=== PATIENT | male | born 1980 | race Caucasian/White ===

== ENCOUNTER 2016-05-12 11:52 | Emergency (ER) | payer SELFPAY ==
[~2016-05-12] VITALS: Ht 180.3 cm; Wt 110.8 kg
[~2016-05-12 11:52] MED LIST: CLON.5 PO; DEPA250T PO; METH750T2 PO; NAPR40TA PO; PHEN60TA PO
[2016-05-12 12:00] VITALS: BP 136/92; PULSE 112; RESP 18; TEMP 102; O2SAT 95
[2016-05-12 12:31] VITALS: BP 145/82; PULSE 108; RESP 20; TEMP 99.9; O2SAT 96
[2016-05-12] MEDS ORDERED: PHEN-522 PO (12:31)
[2016-05-12] MEDS ORDERED: CLON.5 PO (12:31)
[2016-05-12] MEDS ORDERED: VALP250 PO (12:31)
[2016-05-12] MEDS ORDERED: NAPR500T PO (13:21)
[2016-05-12] MEDS ORDERED: AZIT250T3 PO (13:21)
--- NOTE | 2016-05-12 13:22 | PD ---
HPI Chief Complaint: Cold / Flu Symptoms Time Seen by Provider: 13:12 Travel History International Travel<30 days: No Contact w/Intl Traveler<30days: No Traveled to known affect area: No History of Present Illness HPI This is a 35-year-old male who presents to the emergency department with cough and nasal congestion for 1 week, constant, moderate severity associated with yellow sputum production and fevers and chills. He just started a new job. The patient denies any history of smoking. PFSH Past Medical History Autoimmune Disease: No Anxiety: No Depression: Yes Cancer: No Cardiovascular Problems: No Diabetes: No Diminished Hearing: No Endocrine: No Gastrointestinal Disorders: No Genitourinary: No Immune Disorder: No Implanted Vascular Access Dvce: No Musculoskeletal: No Neurologic: Yes Psychiatric: Yes Reproductive: No Respiratory: No Immunizations Current: Yes Seizures: Yes Thyroid Disease: No Tetanus Vaccination: < 5 Years Influenza Vaccination: No ?: Not Past Surgical History Surgical History: No Previous Surgery Endocrine Surgery: Yes (T& A) Tonsillectomy: Yes Other Surgery: Yes Social History Alcohol Use: No Tobacco Use: No (quit 4 years ago) Substance Use: No Allergies-Medications (Allergen,Severity, Reaction): Coded Allergies: No Known Allergies (Verified , 05/12/16) Reported Meds & Prescriptions Reported Meds & Active Scripts Active Reported Klonopin (Clonazepam) 0.5 Mg Tab 0.5 Mg PO HS Phenobarbital 15 Mg Tab 40 Mg PO BID Depakene (Valproic Acid) 250 Mg Cap 500 Mg PO BID Review of Systems Except as stated in HPI: all other systems reviewed are Neg Physical Exam Narrative GENERAL:Well appearing, no acute distress SKIN: Warm and dry. HEAD: Atraumatic. Normocephalic. EYES: Pupils equal and round. No injection or drainage. ENT: Moist mucous membranes. Mild posterior pharyngeal erythema with no exudates. NECK: Trachea midline. CARDIOVASCULAR: Regular rate and rhythm. No murmur appreciated. RESPIRATORY: Clear to auscultation. Breath sounds equal bilaterally. GASTROINTESTINAL: Abdomen soft, non-tender, nondistended. MUSCULOSKELETAL: No obvious deformities. NEUROLOGICAL: Awake and alert. No obvious cranial nerve deficits. Moving all extremities. PSYCHIATRIC: Appropriate mood and affect; insight and judgment normal. Data Data Last Documented VS Vital Signs Date Time Temp Pulse Resp B/P Pulse Ox O2 Delivery O2 Flow Rate FiO2 05/12/16 12:35 20 Room Air 05/12/16 12:31 99.9 108 145/82 96 MDM Medical Decision Making Medical Screen Exam Complete: Yes Emergency Medical Condition: Yes Interpretation(s) Fever, tachycardia, normotensive Differential Diagnosis Influenza, pneumonia, bronchitis Narrative Course This is a 35-year-old male who presents to the emergency department with fever, cough and rhinorrhea. The symptoms of been going on for 1 week. He has a temperature of 102 on arrival. I suspect he has influenza but given the duration of symptoms I don't think he benefit from testing or antivirals. Given his symptoms of been going on for almost a week I think it's also reasonable to give him coverage for a superimposed bacterial infection. He was advised to continue to orally hydrate. He is nontoxic appearing and I think he is appropriate for outpatient management. Patient was discharged with azithromycin and anti-inflammatories. Diagnosis Primary Impression: Bronchitis Patient Instructions: General Instructions Additional Instructions: If you develop severe chest pain, shortness of breath, sweating, lightheadedness , dizziness or difficulty breathing return to the emergency department immediately. Followup with your primary care physician in 2-3 days if your symptoms are not resolved. Med/Other Pt SpecificInfo: Prescription(s) given Scripts Naproxen 500 Mg [id number] Mg PO BID #10 TAB Ref 0 Prov:Margarette Galindo MD 05/12/16 Azithromycin 250 Mg [id number] Mg PO DIRECTED #6 TAB Ref 0 Take 2 tabs (500 mg) on day 1 then 1 tab daily x 4 days. Prov:Margarette Galindo MD 05/12/16 Disposition: 01 DISCHARGE HOME Condition: Stable Margarette Galindo MD May 12, 2016 13:21
== END 2016-05-12 13:40 | disposition home or self-care (01) ==
LOC: PHEFT 11:52
DX: J40 Bronchitis, not specified as acute or chronic (principal); R09.81 Nasal congestion; R50.9 Fever, unspecified; Z86.69 Personal history of other diseases of the nervous system and sense organs; Z86.59 Personal history of other mental and behavioral disorders; Z87.891 Personal history of nicotine dependence
CPT/HCPCS: 99283

== ENCOUNTER 2016-07-19 17:16 | Emergency (ER) | payer OTHER ==
[~2016-07-19] VITALS: Ht 180.3 cm; Wt 110.0 kg
[~2016-07-19 17:16] MED LIST changes: +AZIT250T3 PO; -DEPA250T PO; -METH750T2 PO; -NAPR40TA PO; +NAPR500T PO; +PHEN-522 PO; -PHEN60TA PO; +VALP250 PO
[2016-07-19 17:18] VITALS: BP 137/81; PULSE 85; RESP 17; TEMP 98.2; O2SAT 98
--- NOTE | 2016-07-19 17:30 | PD ---
HPI . left great toe injury Chief Complaint: Injury Time Seen by Provider: 17:30 Travel History International Travel<30 days: No Contact w/Intl Traveler<30days: No Traveled to known affect area: No History of Present Illness HPI 36-year-old male here with complaints of a left great toe injury while at work. Patient was lifting a box of baseboard when somehow fell and hit his great toe. He was seen in urgent care center for this issue as it is a workers comp case, and was referred to the emergency department for an x-ray. He admits to 10 pain without any radiation. He is ambulatory. He has already been placed on work restrictions and will follow up with the urgent care where he was seen. PFSH Past Medical History Autoimmune Disease: No Anxiety: No Depression: Yes Cancer: No Cardiovascular Problems: No Diabetes: No Diminished Hearing: No Endocrine: No Gastrointestinal Disorders: No Genitourinary: No Immune Disorder: No Implanted Vascular Access Dvce: No Musculoskeletal: No Neurologic: Yes Psychiatric: Yes Reproductive: No Respiratory: No Immunizations Current: Yes Seizures: Yes Thyroid Disease: No ?: Not Past Surgical History Endocrine Surgery: Yes (T& A) Tonsillectomy: Yes Other Surgery: Yes Social History Alcohol Use: No Tobacco Use: No (quit 4 years ago) Substance Use: No Allergies-Medications (Allergen,Severity, Reaction): Coded Allergies: No Known Allergies (Verified , 07/19/16) Reported Meds & Prescriptions Reported Meds & Active Scripts Active Ibuprofen 800 Mg Tab 800 Mg PO TID Reported Klonopin (Clonazepam) 0.5 Mg Tab 0.5 Mg PO HS Phenobarbital 15 Mg Tab 40 Mg PO BID Depakene (Valproic Acid) 250 Mg Cap 500 Mg PO BID Review of Systems General / Constitutional: No: Fever Eyes: No: Visual changes HENT: No: Headaches Cardiovascular: No: Chest Pain or Discomfort Respiratory: No: Shortness of Breath Gastrointestinal: No: Abdominal Pain Genitourinary: No: Dysuria Musculoskeletal: Positive: Pain (left great toe) Skin: No Rash Neurologic: No: Weakness Psychiatric: No: Depression Endocrine: No: Polydipsia Hematologic/Lymphatic: No: Easy Bruising Physical Exam Narrative GENERAL: AAO x 3, no acute distress, Well-nourished, well-developed patient. SKIN: Warm and dry. No visible rashes or bruising. HEAD: Normocephalic and atraumatic. EYES: No scleral icterus. No injection or drainage. ENT: No nasal drainage noted. Mucous membranes pink. Airway patent. NECK: Supple, trachea midline. No JVD. CARDIOVASCULAR: Regular rate and rhythm without murmurs, gallops, or rubs. RESPIRATORY: Breath sounds equal bilaterally. No accessory muscle use. No rhonchi or rales. GASTROINTESTINAL: Visual inspection normal EXTREMITIES: No cyanosis or edema. Left great toe with some slight ecchymosis and tender to touch throughout. ROM normal.pedal pulse normal. NEURO: sensation of feet normal BACK: Nontender without obvious deformity. No CVA tenderness. PSYCH: AAO x 3, normal affect. Data Data Last Documented VS Vital Signs Date Time Temp Pulse Resp B/P Pulse Ox O2 Delivery O2 Flow Rate FiO2 07/19/16 17:34 Room Air 07/19/16 17:18 98.2 85 17 137/81 98 Orders Toe (Min 2vws) (07/19/16 17:34) Ibuprofen (Motrin) (07/19/16 17:45) MDM Medical Decision Making Medical Screen Exam Complete: Yes Emergency Medical Condition: Yes Medical Record Reviewed: Yes Differential Diagnosis left great toe contusion, left great toe fracture, less likely great toe dislocation Narrative Course 36-year-old male here with complaints of a left great toe injury while at work. Patient was lifting a box of baseboard when somehow fell and hit his great toe. He was seen in urgent care center for this issue as it is a workers comp case, and was referred to the emergency department for an x-ray. He admits to 10/10 pain without any radiation. He is ambulatory. He has already been placed on work restrictions and will follow up with the urgent care where he was seen. Patient seen and examined. He appears to have a contusion of his left great toe. X-ray ordered to rule out any type of acute fracture. Ibuprofen in the ED. negative for acute fracture. I discussed results with the patient. Patient verbalized understanding of instructions, questions were answered, and thanked me for their care. I advised them if their condition worsens, please return to the nearest emergency room for further care. Diagnosis Primary Impression: Toe contusion Qualified Code: S90.112A - Contusion of left great toe without damage to nail , initial encounter Patient Instructions: General Instructions Additional Instructions: Please return to emergency department if your symptoms return or worsen. Follow up with your primary care provider. Take medications as prescribed. Follow up with the other doctor who gave you the work restrictions for clearance to return to work. Med/Other Pt SpecificInfo: Prescription(s) given Scripts Ibuprofen 800 Mg [id number] Mg PO TID #21 TAB Prov:Roz Newman DO 07/19/16 Disposition: 01 DISCHARGE HOME Condition: Stable [place]on Green July 19, 2016 17:30
[2016-07-19] MEDS ORDERED: IBUPROFEN 800 MG TAB PO ONE (17:45)
--- NOTE | 2016-07-19 18:18 | RADRPT ---
EXAM DATE/TIME: 07/19/2016 17:52 [facility] COMPARISON: No previous studies available for comparison. INDICATIONS : Left foot, great toe pain after wood piece fell on toe. MEDICAL HISTORY : None. SURGICAL HISTORY : None. ENCOUNTER: Initial ACUITY: 1 day PAIN SCORE: 8/10 LOCATION: Left distal great toe FINDINGS: Examination of the first digit of the left foot demonstrates no evidence of fracture or dislocation. No radiopaque foreign bodies are seen. The soft tissues are intact. CONCLUSION: Unremarkable examination of left first toe. King Cain MD on July 19, 2016 at 18:15 Board Certified Radiologist. This report was verified electronically.
[2016-07-19] MEDS ORDERED: IBUP800T23 PO (18:24)
== END 2016-07-19 18:42 | disposition home or self-care (01) ==
LOC: NEPK 17:16
DX: S90.112A Contusion of left great toe without damage to nail, initial encounter (principal); W19.XXXA Unspecified fall, initial encounter; Y93.89 Activity, other specified; Y99.0 Civilian activity done for income or pay
CPT/HCPCS: 73660; 99283

== ENCOUNTER 2016-09-05 14:43 | Emergency (ER) | payer OTHER ==
[~2016-09-05] VITALS: Ht 180.3 cm; Wt 107.0 kg
[~2016-09-05 14:43] MED LIST changes: -AZIT250T3 PO; +IBUP800T23 PO; -NAPR500T PO
[2016-09-05 14:47] VITALS: BP 121/78; PULSE 67; RESP 16; TEMP 98.2; O2SAT 98
== END 2016-09-05 15:36 | disposition left against medical advice (07) ==
LOC: PHEFT 14:43
DX: L72.9 Follicular cyst of the skin and subcutaneous tissue, unspecified (principal)
CPT/HCPCS: 99281